=== PATIENT | male | born 1955 | race African-American/Black ===

== ENCOUNTER 2018-12-11 22:05 | Observation (INO) | payer BC ==
[~2018-12-11 22:05] MED LIST: ISOVUE-370 76%-LOCM 1 ML ONE
[2018-12-11 22:44] LABS: #Basophils 0.1 thou/uL (0.0-0.2); #Eosinphils 0.1 thou/uL (0.0-0.7); #Lymphocytes 2.5 thou/uL (1.20-3.40); #Monocytes 0.9 thou/uL (0.11-0.59); #Neutrophils 4.6 thou/uL (1.40-6.50); %Basophils 0.8 % (0.0-1.0); %Eosinophils 1.6 % (0.0-10.0); %Lymphocytes 30.7 % (21.0-51.0); %Monocytes 11.1 % (0.0-10.0); %Neutrophils 55.8 % (42.0-75.0); Hemoglobin 12.8 g/dL (14.0-18.0); Mean Corpuscular HGB CONC 33.1 g/dL (32.0-36.0); Mean Corpuscular Volume 93.6 fL (78.0-98.0); Mean Platelet Volume 7.1 fL (7.4-10.4); Platelet Count 118 thou/uL (130-400); Red Blood Cell (RBC) Count 4.13 mill/uL (4.70-6.10); White Blood Cell (WBC) Count 8.2 thou/uL (4.8-10.8)
[2018-12-11 22:59] LABS: Bilirubin Negative (Negative); Blood, Urine Negative (Negative); Clarity Clear (Clear); Glucose, Urine (Dipstick) Normal (Negative); Leukocyte Negative Leu/uL (Negative); Nitrite Negative (Negative); Protein, Urine (Dipstick) 20 mg/dL (Neg-Trace); Urobilinogen Normal mg/dL (Less than 2)
[2018-12-11 23:01] LABS: CK (CPK) 87 U/L (30-200); Phosphorus 3.1 mg/dL (2.3-4.7)
[2018-12-11 23:02] LABS: Acetaminophen Less than 6.0 mcg/mL (10.0-30.0); Alcohol 127 mg/dL (Less than 10); Magnesium 1.6 mg/dL (1.6-2.6); Salicylate Less than 8.0 mg/dL (15.0-30.0)
[2018-12-11 23:03] LABS: ALT (SGPT) 14 U/L (8-55); AST (SGOT) 25 U/L (5-34); Albumin 3.4 g/dL (3.4-4.8); Alkaline Phosphatase 64 U/L (40-150); Anion Gap 14 mmol/L (10-20); BUN (Urea Nitrogen) 13 mg/dL (8.4-25.7); Bilirubin, Total 0.7 mg/dL (0.2-1.2); Calc. Creatinine Clearance 0 mL/min (70-130); Calcium 7.9 mg/dL (7.8-10.44); Carbon Dioxide 20 mmol/L (23-31); Chloride 106 mmol/L (98-107); Estimated GFR-MDRD Greater than 90; Globulin 2.3 g/dL (2.4-3.5); Glucose 77 mg/dL (80-115); Potassium 3.3 mmol/L (3.5-5.1); Protein, Total 5.7 g/dL (5.8-8.1); Sodium 137 mmol/L (136-145)
--- NOTE | 2018-12-11 23:08 | CT ---
CT Brain WO Con: 12/11/2018 12:00 AM CLINICAL HISTORY: Trauma, pain. COMPARISON: None. FINDINGS: Hemorrhage: None. Ventricular system: Normal in size and morphology for the patient's age. 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 There i s microvascular ischemic disease. Midline shift: None. Mass: No mass effect. Calvarium: Normal. Visualized Paranasal sinuses: Scattered mild inflammatory mucosal thickening. IMPRESSION: No acute intracranial abnormalities.
--- NOTE | 2018-12-12 00:18 | PDOC.FPRHP ---
- History of Present Illness Chief Complaint: Syncope History of Present Illness: Mr De La O is a 63yo male with pmh HLD, HTN, CVA presenting after syncopal episode this evening around 1900. He was outside at a fish [place] sitting at a picnic table when he leaned over and told his he felt nauseated like he was going to vomit. He also felt diaphoretic at the time. Shortly after he had LOC. His witnessed the event. He did not fall to the ground or hit his head. No seizure like activity, no loss of bowel or bladder, did not bite his tongue. No hx of seizures. Reports his saw him come to and then pass out again but he does not remember this. Denies postictal period. Denied palpitations prior. Reports that last time he had drank water was taking his pills that morning. No hx of syncope. He denies any cardiac hx but had a CVA in 2012 and reports following up with a "vascular" doctor for this. He had a stress test years ago that was normal and was scheduled for exercise stress test next month. Initial BP by EMS 88/64. 1.5L fluid in route. PCP: CC- From [place] ED Course: Initial BP in EMS 88/64. 1.5L fluid in route. [facility]: 1L NS. Trop neg x1. EKG no ischemic changes - Home Medications Medication Instructions Recorded Confirmed Type Allopurinol 100 mg PO DAILY 12/12/18 12/12/18 History Aspirin-Dipyridamole [Aggrenox] 1 tablet PO QAM 12/12/18 12/12/18 History Folic Acid [Folvite] 1 mg PO DAILY 12/12/18 12/12/18 History Lisinopril/Hydrochlorothiazide 1 tablet PO QAM 12/12/18 12/12/18 History [Lisinopril-Hctz 20-25 mg Tab] Omeprazole 20 mg PO QAM 12/12/18 12/12/18 History - History PMHx: HLD, HTN, CVA with residual left sided weakness PSHx: Hernia repair FHx: DMII Social: Drinks >5 drinks per day. Smokes 1/2 pk per day for >30yrs. Denies drug use - Review of Systems General: denies: fever/chills, weight/appetite/sleep changes, fatigue Eyes: denies: eye pain, vision changes ENT: denies: nasal congestion, rhinorrhea Respiratory: denies: cough, congestion, shortness of breath, exercise intolerance Cardiovascular: denies: chest pain, palpitation, edema Gastrointestinal: reports: nausea. denies: vomiting, abdominal pain Genitourinary: denies: incontinence, dysuria Skin: denies: rashes, lesions Musculoskeletal: denies: pain, tenderness Neurological: reports: syncope, weakness (residual left sided weakness from CVA) . denies: numbness - Vital signs BP: 140/90 HR: 94 RR: 18 Tmax: 98.6 Pox: 97% on RA Wt: 72kg - Physical Exam Constitutional: NAD, awake, alert and oriented, well developed HEENT: normocephalic and atraumatic, conjunctiva clear, MMM, oropharynx clear Neck: supple, trachea midline Heart: RRR, no murmurs/rubs/gallops Lungs: CTAB, no respiratory distress, good air movement Abdomen: soft, non-tender, bowel sounds present Musculoskeletal: normal structure, normal tone, ROM grossly normal Neurological: no focal deficit Skin: no rash/lesions, good turgor Psychiatric: normal mood and affect, good judgment and insight, intact recent and remote memory FMR H&P: Results - Labs Result Diagrams: 12/11/18 22:35 12/12/18 03:04 Lab results: WBC 8.2 thou/uL (4.8-10.8) 12/11/18 22:35 Hgb 12.8 g/dL (14.0-18.0) L 12/11/18 22:35 Hct 38.6 % (42.0-52.0) L 12/11/18 22:35 MCV 93.6 fL (78.0-98.0) 12/11/18 22:35 Plt Count 118 thou/uL (130-400) L 12/11/18 22:35 Neutrophils % 55.8 % (42.0-75.0) 12/11/18 22:35 Sodium 137 mmol/L (136-145) 12/11/18 22:35 Potassium 3.3 mmol/L (3.5-5.1) L 12/11/18 22:35 Chloride 106 mmol/L (98-107) 12/11/18 22:35 Carbon Dioxide 20 mmol/L (23-31) L 12/11/18 22:35 BUN 13 mg/dL (8.4-25.7) 12/11/18 22:35 Creatinine 0.74 mg/dL (0.7-1.3) 12/11/18 22:35 Glucose 77 mg/dL (80-115) L 12/11/18 22:35 Calcium 7.9 mg/dL (7.8-10.44) 12/11/18 22:35 Total Bilirubin 0.7 mg/dL (0.2-1.2) 12/11/18 22:35 AST 25 U/L (5-34) 12/11/18 22:35 ALT 14 U/L (8-55) 12/11/18 22:35 Alkaline Phosphatase 64 U/L (40-150) 12/11/18 22:35 Creatine Kinase 87 U/L (30-200) 12/11/18 22:35 B-Natriuretic Peptide Less than 10.0 pg/mL (0-100) 12/11/18 22:35 Serum Total Protein 5.7 g/dL (5.8-8.1) L 12/11/18 22:35 Albumin 3.4 g/dL (3.4-4.8) 12/11/18 22:35 Urine Ketones Negative mg/dL (Negative) 12/11/18 22:40 Urine Blood Negative (Negative) 12/11/18 22:40 Urine Nitrite Negative (Negative) 12/11/18 22:40 Ur Leukocyte Esterase Negative Audrey/uL (Negative) 12/11/18 22:40 - EKG Interpretation EKG: normal sinus rhythm, Rate (beats per minute): 85, with no ectopics, Conduction normal, ST segments normal, T waves normal, [place] normal, Clinical impression: Normal EKG. - Radiology Interpretation CT scan - head Status: report reviewed by me Additional comment: No acute intracranial abnormalities FMR H&P: A/P - Problem List (1) Syncope Current Visit: Yes Status: Acute Code(s): R55 - SYNCOPE AND COLLAPSE (2) HTN (hypertension) Current Visit: Yes Status: Acute Code(s): I10 - ESSENTIAL (PRIMARY) HYPERTENSION (3) HLD (hyperlipidemia) Current Visit: Yes Status: Acute Code(s): E78.5 - HYPERLIPIDEMIA, UNSPECIFIED (4) History of CVA (cerebrovascular accident) Current Visit: Yes Status: Acute Code(s): Z86.73 - PRSNL HX OF TIA (TIA), AND CEREB INFRC W/O RESID DEFICITS (5) Alcohol abuse Current Visit: Yes Status: Acute Code(s): F10.10 - ALCOHOL ABUSE, UNCOMPLICATED (6) Nicotine abuse Current Visit: Yes Status: Acute Code(s): Z72.0 - TOBACCO USE - Plan Mr De La O is a 63yo male with pmh HLD, HTN, CVA presenting after syncopal episode. Syncope - Most likely vasovagal, pt had prodromal symptoms and was likely dehydrated as he had not drank any water since AM and was outside. - EKG: NSR - Trop neg x1, continue to trend - Electrolytes wnl with exception of mild hypokalemia - Ordered UDS - Admit to tele obs Hypotension, resolved - likely 2/2 volume depletion/dehydration - s/p 2.5L IVF - Encourage oral hydration Normocytic Anemia - Hgb 12.8 Hypokalemia - 3.3, will replace with PO KCl - BMP in AM HTN - Continue home meds GERD - Continue home meds Hx of CVA - Continue home meds Alcohol Abuse - ASE protocol - No hx of withdrawal or seizures Tobacco Abuse - Encourage Cessation Code Status: FULL DVT ppx: SCDs PCP: [facility]- [facility] Case was Discussed with Dr Cross Addendum - Attending - Attending Attestation Date/Time: 12/12/18 [id number] I personally evaluated the patient and discussed the management with Dr. Dang. I agree with the History, Examination, Assessment and Plan documented above with any addition or exceptions noted below.
[2018-12-12] MEDS ORDERED: Sodium Chloride 0.9% 1,000 ML IV SCH (02:17)
[2018-12-12] MEDS ORDERED: Ondansetron PF 4 MG/2 ML Vial IVP PRN (02:17)
[2018-12-12] MEDS ORDERED: Ondansetron ODT 4 MG TAB SL PRN (02:17)
[2018-12-12] MEDS ORDERED: Acetaminophen 325 MG TAB PO PRN (02:17)
[2018-12-12] MEDS ORDERED: Ondansetron ODT 4 MG TAB PO PRN (02:23)
[2018-12-12] MEDS ORDERED: Potassium Chloride 20 MEQ TAB PO SCH (02:30)
[2018-12-12 03:30] LABS: Anion Gap 14 mmol/L (10-20); BUN (Urea Nitrogen) 11 mg/dL (8.4-25.7); Calc. Creatinine Clearance 0 mL/min (70-130); Calcium 8.4 mg/dL (7.8-10.44); Carbon Dioxide 21 mmol/L (23-31); Chloride 109 mmol/L (98-107); Estimated GFR-MDRD Greater than 90; Glucose 94 mg/dL (80-115); Potassium 3.9 mmol/L (3.5-5.1); Sodium 140 mmol/L (136-145)
[2018-12-12 03:36] VITALS: BMI 24.7
[2018-12-12 03:36] LABS: Troponin I Less than 0.010 ng/mL (< 0.028)
[2018-12-12] MEDS ORDERED: Lisinopril/Hydrochlorothiazide 20/25 mg Tablet PO SCH (09:00)
[2018-12-12] MEDS ORDERED: Aggrenox 200-25mg CAP PO SCH (09:00)
[2018-12-12 11:48] VITALS: BP 150/79; TEMP 98.1
[2018-12-12 14:13] LABS: Amphetamine Not Detected (NotDetected); Barbiturates Screen Not Detected (NotDetected); Benzodiazepine Screen Not Detected (NotDetected); Cocaine Metabolite Screen Not Detected (NotDetected); Medtox Control Line Valid? VALID (VALID); Medtox Reader # READER 4; Methadone Not Detected (NotDetected); Methamphetamine Not Detected (NotDetected); Opiate Screen Not Detected (NotDetected); Oxycodone Screen Not Detected (NotDetected); Phencyclidine (PCP) Not Detected (NotDetected); THC/Cannabinoid Screen Not Detected (NotDetected); Tricyclic Screen Not Detected (NotDetected)
--- NOTE | 2018-12-13 05:48 | DIS ---
DATE OF ADMISSION: 12/12/2018 DATE OF DISCHARGE: 12/12/2018 RESIDENT: Dr. Wesley Ruiz ADMITTING ATTENDING: Dr. Milad Cross. DISCHARGE ATTENDING: Dr. Milad Cross. CONSULTS: None. PROCEDURES: None. PRIMARY DIAGNOSES: 1. Vasovagal syncope. 2. Hypotension. 3. Hypokalemia. SECONDARY DIAGNOSES: 1. Normocytic anemia. 2. Hypertension. 3. Gastroesophageal reflux disease. 4. History of CVA. 5. Alcohol abuse. 6. Tobacco abuse. DISCHARGE MEDICATIONS: 1. Prilosec 20 mg p.o. q.a.m. 2. Lisinopril and hydrochlorothiazide 20/25 one tablet p.o. q.a.m. 3. Aspirin dipyridamole one tablet p.o. q.a.m. 4. Folic acid 1 mg p.o. daily. 5. Allopurinol 100 mg p.o. daily. DISCONTINUED MEDICATIONS: None. HISTORY OF PRESENT ILLNESS: Mr. De La O is a 63-year-old male with past medical history of hyperlipidemia, hypertension, CVA, presenting after a syncopal event. He states he was outside at a fish [place] sitting at a picnic table when he leaned over and told his that he felt nauseated and that he was going to vomit. At that time, he also felt diaphoretic and shortly after had a loss of consciousness. His witnessed the event. He did not fall to the ground nor hit his head. There was no seizure-like activity, loss of bladder or bowel and he did not bite his tongue. He has no history of seizures and no known family history of seizures. His reports that he came to and then passed out again, but he does not remember this. He denies any postictal state, palpitations prior or after. He reports that the last time he had anything other than alcohol to drink that day was that morning with his morning medications. He had no history of syncope and denies any cardiac history, but had a CVA in 2012 and reports following up with his vascular doctor. He had a stress test years ago that was normal and is due for an exercise stress test next month. In the emergency department, his initial blood pressure was 88/64. He was given 1.5 L en route to the hospital. Then once in the emergency department, he was given 1 L normal saline bolus with improvement in blood pressure. His EKG showed no ischemic changes and his initial troponin was negative. He was then admitted for further management. Once on the floor, his troponins were trended and negative. He was admitted to telemetry and demonstrated no acute events overnight. His electrolytes were within normal limits except for a mild hypokalemia that was 3.3 and replaced with p.o. potassium. UDS was negative and a blood alcohol was 127 upon admission. His blood pressure improved. At the time of discharge, the patient was stable and in no acute distress and back to his baseline. He states that he is eager to go home. It was discussed with the patient the need for staying hydrated when out in the sun and the need to limit alcohol and quit smoking tobacco. The patient voiced agreement and understanding of the discharge plan and need to follow up with his primary care physician within 2 weeks. The patient was then discharged home to self-care. DISPOSITION: Stable. DISCHARGE INSTRUCTIONS: 1. Location: Home. 2. Diet: Heart healthy. 3. Activity: As tolerated. 4. Followup: Follow up with primary care physician within 2 weeks. Job ID: [id number] CHUCK
== END 2018-12-12 11:32 | disposition home or self-care (01) ==
LOC: ERS 22:05 → 2NO 12-12 00:33
PROVIDERS: ADMIT Student in an Organized Health Care Education/Training Program; ATTEND Student in an Organized Health Care Education/Training Program
DX: I95.9 Hypotension, unspecified (principal); E87.6 Hypokalemia; D64.9 Anemia, unspecified; I10 Essential (primary) hypertension; K21.9 Gastro-esophageal reflux disease without esophagitis; F10.10 Alcohol abuse, uncomplicated; F17.210 Nicotine dependence, cigarettes, uncomplicated; E78.5 Hyperlipidemia, unspecified; Z86.73 Personal history of transient ischemic attack (TIA), and cerebral infarction without residual deficits; Z79.82 Long term (current) use of aspirin; Z79.899 Other long term (current) drug therapy
CPT/HCPCS: 36415; 70450; 80048; 80053; 80306; 80307; 81003; 82550; 83735; 83880; 84100; 84484; 85025; 93005; 96360; 96361; G0378; Q9966